=== PATIENT | female | born 1975 | race American Indian/Alaskan Native ===

== ENCOUNTER 2020-06-13 22:49 | Emergency (ER) | payer MEDICAID ==
[2020-06-13] MEDS ORDERED: Sodium Chloride 0.9% 1,000 ML IV SCH (23:15)
--- NOTE | 2020-06-13 23:15 | EDM.PDOC ---
ED HPI GENERAL MEDICAL PROBLEM - General Chief Complaint: Abdominal Pain Stated Complaint: LEFT ABDOMIN PAIN Time Seen by Provider: 06/13/20 23:07 Source of Information: Reports: Patient History Limitations: Reports: No Limitations - History of Present Illness INITIAL COMMENTS - FREE TEXT/NARRATIVE: This 45 yo female patient reports to the ED with left lower abdominal pain and abdominal bloating. The patient reports her symptoms started yesterday, but have been getting worse. The patient reports she had a loose bowel movement yesterday, but no bowel movement today. The patient reports she has been eating an drinking normally. The patient reports she had her last menstrual cycle last week and has not noticed any additional blood in her urine. The patient has had her appendix removed in the past. The patient reports she has take her gabapentin, but has not taken anything else for her current symptoms. The patient reports she attempted to get into the clinic, but could not call the clinic and could not find a ride to the clinic. The patient reports she has had her "tubes tied", but admits to recent unprotected sex. The patient admits to using marijuana and meth just prior to her symptom onset. Onset Date: 06/12/20 Duration: Constant, Getting Worse Location: Reports: Abdomen (LLQ with abdominal bloating) Quality: Reports: Ache Severity: Moderate Improves with: Reports: None Worsens with: Reports: None Context: Reports: Other Associated Symptoms: Reports: No Other Symptoms Treatments EDUCATIONAL PROGRAM ASSISTANT: Reports: Other Medication(s) Left Lower Abdomen Pain Score (Numeric/FACES): 6 - Related Data Allergies Allergy/AdvReac Type Severity Reaction Status Date / Time Sulfa (Sulfonamide Allergy Rash Verified 06/13/20 22:53 Antibiotics) Home Meds: Home Meds Gabapentin [Neurontin] 200 mg PO TID 06/13/20 [History] Social & Family History - Tobacco Use Tobacco Use Status *Q: Light Tobacco User Years of Tobacco use: 25 Packs/Tins Daily: 0.3 - Recreational Drug Use Recreational Drug Use: Yes Recreational Drug Type: Reports: Marijuana/Hashish, Methamphetamine Recreational Drug Use Frequency: Socially ED ROS GENERAL - Review of Systems Review Of Systems: Comprehensive ROS is negative, except as noted in HPI. ED EXAM, GI/ABD - Physical Exam Exam: See Below Exam Limited By: No Limitations General Appearance: Alert, WD/WN, Moderate Distress Eyes: Bilateral: Normal Appearance, EOMI Ears: Normal External Exam, Normal Canal, Hearing Grossly Normal, Normal TMs Nose: Normal Inspection, Normal Mucosa, No Blood Throat/Mouth: Normal Inspection, Normal Lips, Normal Teeth, Normal Gums, Normal Oropharynx, Normal Voice, No Airway Compromise Head: Atraumatic, Normocephalic Neck: Normal Inspection, Supple, Non-Tender, Full Range of Motion Respiratory/Chest: No Respiratory Distress, Lungs Clear, Normal Breath Sounds, No Accessory Muscle Use, Chest Non-Tender Cardiovascular: Normal Peripheral Pulses, Regular Rate, Rhythm, No Edema, No Gallop, No JVD, No Murmur, No Rub GI/Abdominal Exam: Normal Bowel Sounds, Distended (mild), Tender (diffuse with increased tenderness in the left lower quadrant) (Female) Exam: Deferred Rectal (Female) Exam: Deferred Back Exam: Normal Inspection, Full Range of Motion, NT Extremities: Normal Inspection, Normal Range of Motion, Non-Tender, Normal Capillary Refill, No Pedal Edema Neurological: Alert, Oriented, CN II-XII Intact, Normal Cognition, Normal Gait, Normal Reflexes, No Motor/Sensory Deficits Psychiatric: Normal Affect, Normal Mood Skin Exam: Warm, Dry, Intact, Normal Color, No Rash Lymphatic: No Adenopathy Course - Vital Signs Last Recorded V/S: Last Vital Signs Temp 36.1 C 06/13/20 22:54 Pulse 79 06/13/20 22:54 Resp 18 06/13/20 22:54 BP 135/76 06/13/20 22:54 Pulse Ox 100 06/13/20 22:54 - Orders/Labs/Meds Orders: Active Orders 24 hr Category Date Time Status CULTURE BLOOD [BC] Stat Lab 06/13/20 22:51 Ordered CULTURE URINE [RM] Stat Lab 06/13/20 23:07 Received Sodium Chloride 0.9% [Normal Saline] 1,000 ml Med 06/13/20 23:15 Ordered IV ASDIRECTED Medication Orders Sodium Chloride (Normal Saline) 1,000 mls @ 250 mls/hr IV ASDIRECTED TIFFANIE Last Admin: 06/13/20 23:16 Dose: 250 mls/hr Documented by: SYLLMEG Labs: Laboratory Tests 06/13/20 06/13/20 06/13/20 Range/Units 23:00 23:00 23:00 WBC 4.2 L (5.0-10.0) 10^3/uL RBC 4.18 L (4.2-5.4) 10^6/uL Hgb 10.8 L (12.0-16.0) g/dL Hct 33.7 L (37.0-47.0) % MCV 80.6 (80-100) fL MCH 25.8 L (27.0-34.0) pg MCHC 32.0 L (33.0-35.0) g/dL Plt Count 279 (150-450) 10^3/uL Neut % (Auto) 57.6 (42.2-75.2) % Lymph % (Auto) 33.9 (20.5-50.1) % Hunt % (Auto) 8.1 H (2-8) % Eos % (Auto) 0.2 L (1.0-3.0) % Baso % (Auto) 0.2 (0.0-1.0) % Sodium 142 (136-145) mmol/L Potassium 3.7 (3.5-5.1) mmol/L Chloride 103 (98-107) mmol/L Carbon Dioxide 30 (21-32) mmol/L Anion Gap 12.7 (7-13) mEq/L BUN 13 (7-18) mg/dL Creatinine 0.91 (0.55-1.02) mg/dL Est Cr Clr Drug Dosing 81.59 mL/min Estimated GFR (MDRD) > 60 BUN/Creatinine Ratio 14.3 (No establ ref range) Glucose 90 (74-99) mg/dL Lactic Acid 0.5 (0.4-2.0) mmol/L Calcium 8.8 (8.5-10.1) mg/dL Total Bilirubin 0.2 (0.2-1.0) mg/dL AST 18 (15-37) U/L ALT 20 (14-59) U/L Alkaline Phosphatase 109 (46-116) U/L Total Protein 8.5 H (6.4-8.2) g/dL Albumin 4.2 (3.4-5.0) g/dL Globulin 4.3 Albumin/Globulin Ratio 1.0 Amylase 51 (25-115) U/L Lipase 163 (73-393) U/L Urine Color (YELLOW) Urine Appearance (CLEAR) Urine pH (5.0-9.0) Ur Specific [place] (1.005-1.030) Urine Protein (NEGATIVE) Urine Glucose (UA) (NEGATIVE) Urine Ketones (NEGATIVE) Urine Occult Blood (NEGATIVE) Urine Nitrite (NEGATIVE) Urine Bilirubin (NEGATIVE) Urine Urobilinogen (0.2-1.0) mg/dL Ur Leukocyte Esterase (NEGATIVE) Urine RBC /HPF Urine WBC (0-5/HPF) /HPF Ur Epithelial Cells (NOT SEEN) /HPF Amorphous Sediment (NOT SEEN) /HPF Urine Bacteria (0-FEW/HPF) /HPF Urine HCG, Qual Urine Opiates Screen (NEGATIVE) Ur Oxycodone Screen (NEGATIVE) Urine Methadone Screen (NEGATIVE) Ur Barbiturates Screen (NEGATIVE) U Tricyclic Antidepress (NEGATIVE) Ur Phencyclidine Scrn (NEGATIVE) Ur Amphetamine Screen (NEGATIVE) U Methamphetamines Scrn (NEGATIVE) Urine MDMA Screen (NEGATIVE) U Benzodiazepines Scrn (NEGATIVE) Urine Cocaine Screen (NEGATIVE) U Marijuana (THC) Screen (NEGATIVE) 06/13/20 06/13/20 06/13/20 Range/Units 23:07 23:07 23:07 WBC (5.0-10.0) 10^3/uL RBC (4.2-5.4) 10^6/uL Hgb (12.0-16.0) g/dL Hct (37.0-47.0) % MCV (80-100) fL MCH (27.0-34.0) pg MCHC (33.0-35.0) g/dL Plt Count (150-450) 10^3/uL Neut % (Auto) (42.2-75.2) % Lymph % (Auto) (20.5-50.1) % Hunt % (Auto) (2-8) % Eos % (Auto) (1.0-3.0) % Baso % (Auto) (0.0-1.0) % Sodium (136-145) mmol/L Potassium (3.5-5.1) mmol/L Chloride (98-107) mmol/L Carbon Dioxide (21-32) mmol/L Anion Gap (7-13) mEq/L BUN (7-18) mg/dL Creatinine (0.55-1.02) mg/dL Est Cr Clr Drug Dosing mL/min Estimated GFR (MDRD) BUN/Creatinine Ratio (No establ ref range) Glucose (74-99) mg/dL Lactic Acid (0.4-2.0) mmol/L Calcium (8.5-10.1) mg/dL Total Bilirubin (0.2-1.0) mg/dL AST (15-37) U/L ALT (14-59) U/L Alkaline Phosphatase (46-116) U/L Total Protein (6.4-8.2) g/dL Albumin (3.4-5.0) g/dL Globulin Albumin/Globulin Ratio Amylase (25-115) U/L Lipase (73-393) U/L Urine Color Yellow (YELLOW) Urine Appearance Slightly cloudy (CLEAR) Urine pH 7.5 (5.0-9.0) Ur Specific [place] 1.025 (1.005-1.030) Urine Protein Negative (NEGATIVE) Urine Glucose (UA) Negative (NEGATIVE) Urine Ketones Negative (NEGATIVE) Urine Occult Blood Negative (NEGATIVE) Urine Nitrite Negative (NEGATIVE) Urine Bilirubin Negative (NEGATIVE) Urine Urobilinogen 1.0 (0.2-1.0) mg/dL Ur Leukocyte Esterase Small H (NEGATIVE) Urine RBC 0-5 /HPF Urine WBC 50-75 H (0-5/HPF) /HPF Ur Epithelial Cells Moderate H (NOT SEEN) /HPF Amorphous Sediment Moderate H (NOT SEEN) /HPF Urine Bacteria Many H (0-FEW/HPF) /HPF Urine HCG, Qual Negative Urine Opiates Screen Negative (NEGATIVE) Ur Oxycodone Screen Negative (NEGATIVE) Urine Methadone Screen Negative (NEGATIVE) Ur Barbiturates Screen Negative (NEGATIVE) U Tricyclic Antidepress Negative (NEGATIVE) Ur Phencyclidine Scrn Negative (NEGATIVE) Ur Amphetamine Screen Positive H (NEGATIVE) U Methamphetamines Scrn Positive H (NEGATIVE) Urine MDMA Screen Negative (NEGATIVE) U Benzodiazepines Scrn Negative (NEGATIVE) Urine Cocaine Screen Negative (NEGATIVE) U Marijuana (THC) Screen Positive H (NEGATIVE) Meds: Medications Generic Name Dose Route Start Last Admin Trade Name Freq PRN Reason Stop Dose Admin Sodium Chloride 1,000 mls @ 250 mls/hr 06/13/20 23:15 06/13/20 23:16 Normal Saline IV 250 mls/hr ASDIRECTED TIFFANIE Administration Discontinued Medications Generic Name Dose Route Start Last Admin Trade Name Freq PRN Reason Stop Dose Admin Amoxicillin/Clavulanate Potassium 1 tab 06/14/20 00:34 Amoxicillin/Clavulanate K 500-125 Mg Tab PO 06/14/20 00:35 ONETIME ONE Iopamidol 100 ml 06/13/20 23:37 06/13/20 23:45 Iopamidol 612 Mg/Ml 100 Ml Bottle IVPUSH 06/13/20 23:38 100 ml ONETIME ONE Administration Departure - Departure Time of Disposition: 00:36 Disposition: Home, Self-Care 01 Condition: Good Clinical Impression: Methamphetamine use Constipation Qualifiers: Constipation type: unspecified constipation type Qualified Code(s): K59.00 - Constipation, unspecified UTI (urinary tract infection) Qualifiers: Urinary tract infection type: site unspecified Hematuria presence: without hematuria Qualified Code(s): N39.0 - Urinary tract infection, site not specified - Discharge Information *PRESCRIPTION DRUG MONITORING PROGRAM REVIEWED*: Not Applicable *COPY OF PRESCRIPTION DRUG MONITORING REPORT IN PATIENT VLAE: Not Applicable Instructions: Urinary Tract Infection, Adult, [id number], Constipation, Adult, [id number] Forms: ED Department Discharge Care Plan Goals: The patient was advised of the examination, lab and CT results during the visit. The patient was given an oral dose of Augment while in the ED. The patient was discharged with a script for Augmentin (500/125) #6 to take 1 by mouth 2 times per day for 3 days. If the patient has any additional symptoms or concerns, the patient should either return to the emergency department or visit her primary care facility. Sepsis Event Note (ED) - Evaluation Sepsis Screening Result: No Definite Risk - Focused Exam Vital Signs: Vital Signs Temp Pulse Resp BP Pulse Ox 06/13/20 22:54 36.1 C 79 18 135/76 100 - My Orders Last 24 Hours: My Active Orders 06/13/20 22:51 CULTURE BLOOD [BC] Stat 06/13/20 23:07 CULTURE URINE [RM] Stat 06/13/20 23:15 Sodium Chloride 0.9% [Normal Saline] 1,000 ml IV ASDIRECTED - Assessment/Plan Last 24 Hours: My Active Orders 06/13/20 22:51 CULTURE BLOOD [BC] Stat 06/13/20 23:07 CULTURE URINE [RM] Stat 06/13/20 23:15 Sodium Chloride 0.9% [Normal Saline] 1,000 ml IV ASDIRECTED
[2020-06-13 23:28] LABS: ANION GAP 12.7 mEq/L (7-13); CHLORIDE,CL 103 mmol/L (98-107); SODIUM,NA 142 mmol/L (136-145)
[2020-06-13] MEDS ORDERED: Iopamidol 612 MG/ML 100 ML Bottle IVPUSH ONE (23:37)
--- NOTE | 2020-06-14 00:31 | CT ---
PROCEDURE INFORMATION: Exam: CT Abdomen And Pelvis With Contrast Exam date and time: 06/14/2020 12:01 AM Age: 45 years old Clinical indication: Other: Pain; Additional info: Left lower abdominal pain with bloating TECHNIQUE: Imaging protocol: Computed tomography of the abdomen and pelvis with contrast. Radiation optimization: All CT scans at this facility use at least one of these dose optimization techniques: automated exposure control; mA and/or kV adjustment per patient size (includes targeted exams where dose is matched to clinical indication); or iterative reconstruction. Contrast material: [id number]; Contrast volume: 100 ml; Contrast route: INTRAVENOUS (IV); COMPARISON: CT ABDOMEN/PELVIS 10/30/2012 6:42 AM FINDINGS: Lungs: The lung bases are clear. There are no pleural effusions. Liver: The liver is homogeneous in appearance without focal hepatic lesions. Gallbladder and bile ducts: The gallbladder is not distended. There is no biliary ductal dilatation. Pancreas: The pancreas is within normal limits. Spleen: The spleen is normal in size. Adrenal glands: The adrenal glands are normal in appearance. Kidneys and ureters: The kidneys are symmetric in size. There is no hydronephrosis. No renal or ureteral calculi are identified. Stomach and bowel: The stomach is moderately distended with ingested material. No pathologically dilated small bowel loops are seen. There is a large volume of stool in the colon. There is no evidence of colonic wall thickening or pericolonic inflammation. Appendix: The appendix is surgically absent. Intraperitoneal space: There is no free air or free fluid in the abdomen or pelvis. Vasculature: The abdominal aorta is normal in caliber. The celiac axis, SMA and PABLO are patent. Lymph nodes: No pathologically enlarged lymph nodes are identified in the abdomen or pelvis. Urinary bladder: The urinary bladder appears normal. Reproductive: The uterus is normal in appearance. No adnexal masses are identified. Bones/joints: There is moderate degenerative disc disease in the lumbar spine. No acute fractures or aggressive bone lesions are identified. Soft tissues: There is minor focal fat along the falciform ligament. IMPRESSION: Large volume of stool in the colon suggesting constipation. No evidence of bowel obstruction or acute inflammatory process in the abdomen or pelvis.
[2020-06-14] MEDS ORDERED: Amoxicillin/Clavulanate K 500-125 MG Tab PO ONE (00:34)
== END 2020-06-14 00:48 | disposition home or self-care (01) ==
LOC: DL.ED 22:49
DX: N39.0 Urinary tract infection, site not specified (principal); K59.00 Constipation, unspecified; F15.90 Other stimulant use, unspecified, uncomplicated; Z88.2 Allergy status to sulfonamides; Z79.899 Other long term (current) drug therapy; Z87.891 Personal history of nicotine dependence
CPT/HCPCS: 36415; 74177; 80053; 80305; 81001; 81025; 82150; 83605; 83690; 85025; 87040; 87086; 99283; 99284; A9270; J7030; Q9967

== ENCOUNTER 2022-04-11 13:25 | Emergency (ER) | payer MEDICAID ==
[2022-04-11] MEDS ORDERED: Sodium Chloride 0.9% 10 ML Syringe FLUSH PRN (13:52)
[2022-04-11 14:39] LABS: ANION GAP 12.7 mEq/L (7-13); CHLORIDE,CL 102 mmol/L (98-107); SODIUM,NA 138 mmol/L (136-145)
[2022-04-11 14:40] LABS: ESTIMATED GFR 99 mL/min (>=60)
== END 2022-04-11 15:20 | disposition home or self-care (01) ==
LOC: DL.ED 13:25
DX: R55 Syncope and collapse (principal); Z88.5 Allergy status to narcotic agent; Z88.2 Allergy status to sulfonamides; Z88.8 Allergy status to other drugs, medicaments and biological substances
CPT/HCPCS: 36415; 80053; 83605; 83735; 84145; 85025; 86140; 87040; 93005; 93010; 99283; 99284

== ENCOUNTER 2022-07-16 15:11 | Emergency (ER) | payer MEDICAID ==
[2022-07-16] MEDS ORDERED: Sodium Chloride 0.9% 10 ML Syringe FLUSH PRN (15:18)
[2022-07-16 16:14] LABS: CHLORIDE,CL 106 mmol/L (98-107); SODIUM,NA 142 mmol/L (136-145)
[2022-07-16 16:15] LABS: ESTIMATED GFR 89 mL/min (>=60)
[2022-07-16] MEDS ORDERED: Iopamidol 612 MG/ML 100 ML Bottle IVPUSH ONE (16:19)
[2022-07-16] MEDS ORDERED: Enoxaparin 100 MG/1 ML Syringe SUBCUT ONE (17:36)
== END 2022-07-16 18:00 ==
LOC: DL.ED 15:11
DX: I82.B11 Acute embolism and thrombosis of right subclavian vein (principal); R59.0 Localized enlarged lymph nodes; S21.001A Unspecified open wound of right breast, initial encounter; Z88.5 Allergy status to narcotic agent; Z88.2 Allergy status to sulfonamides; Z88.8 Allergy status to other drugs, medicaments and biological substances; Z86.16 Personal history of COVID-19
CPT/HCPCS: 36415; 71260; 80053; 83605; 83735; 84703; 85025; 85610; 86140; 96372; 99284; J1650; Q9967

== ENCOUNTER 2022-09-05 22:17 | Emergency (ER) | payer MEDICAID | END 2022-09-06 02:17 | LOC: DL.ED 22:17 | DX: I82.A11 Acute embolism and thrombosis of right axillary vein (principal); C50.911 Malignant neoplasm of unspecified site of right female breast; R60.0 Localized edema; F17.210 Nicotine dependence, cigarettes, uncomplicated; Z86.16 Personal history of COVID-19; Z88.5 Allergy status to narcotic agent; Z88.8 Allergy status to other drugs, medicaments and biological substances; Z88.2 Allergy status to sulfonamides | CPT/HCPCS: 99285 ==

== ENCOUNTER 2023-02-19 11:06 | Emergency (ER) | payer MEDICAID | END 2023-02-19 16:29 | disposition left against medical advice (07) | LOC: DL.ED 11:06 | DX: Z53.21 Procedure and treatment not carried out due to patient leaving prior to being seen by health care provider (principal) ==

== ENCOUNTER 2023-03-10 21:15 | Inpatient (IN) | payer MEDICAID ==
[2023-03-10] MEDS ORDERED: Naloxone 2 MG/2 ML Syringe IVPUSH PRN ×2 (21:57→22:37)
[2023-03-10] MEDS ORDERED: Morphine 2 MG/ML SYRINGE IVPUSH ONE (21:57)
[2023-03-10] MEDS ORDERED: Ondansetron 4 MG/2 ML SDV IVPUSH PRN (22:24)
[2023-03-10] MEDS ORDERED: HYDROmorphone 1 MG/ML Syringe IVPUSH ONE (22:34)
[2023-03-10] MEDS: LORazepam 2 MG/ML SDV IV PRN (22:41)
[2023-03-10] MEDS ORDERED: fentaNYL Citrate/PF 1,500 MCG/30 ML PCA Vial IV SCH (22:45)
[2023-03-10] MEDS ORDERED: Triamcinolone Acetonide 0.1% Crm 15 GM Tube TOP ONE (22:52)
[2023-03-11] MEDS ORDERED: Sodium Chloride 0.9% 10 ML Syringe FLUSH PRN (00:14)
[2023-03-11] MEDS ORDERED: Polyethylene Glycol 3350 Powder 17 GM Packet PO PRN (00:14)
[2023-03-11] MEDS ORDERED: Magnesium Hydroxide 400 MG/5 ML Susp 30 ML Cup PO PRN (00:14)
[2023-03-11] MEDS ORDERED: Sennosides/Docusate Sodium 50-8.6 MG Tab PO PRN (00:14)
[2023-03-11] MEDS: Nicotine 21 MG/24 Hr Patch TRDERM SCH ×2 (02:40→08:26)
[2023-03-11] MEDS ORDERED: Pantoprazole 40 MG Vial IVPUSH ONE (02:58)
[2023-03-11] MEDS: LORazepam 2 MG/ML SDV IV PRN ×4 (03:30→19:00)
[2023-03-11] MEDS: diphenhydrAMINE 50 MG/ML SDV IVPUSH PRN ×2 (04:00→19:43)
[2023-03-11 06:28] LABS: BASOPHILS PERCENT AUTO 0.3 % (0.0-1.0); EOSINOPHILS PERCENT AUTO 0.5 % (1.0-3.0); HEMATOCRIT 25.6 % (37.0-47.0); LYMPHOCYTES PERCENT AUTO 8.5 % (20.5-50.1); MEAN CORPUSCULAR HEMOGLOBIN 31.5 pg (27.0-34.0); MEAN CORPUSCULAR HGB CONC 31.3 g/dL (33.0-35.0); MEAN CORPUSCULAR VOLUME 100.8 fL (80-100); NEUTROPHILS PERCENT AUTO 76.7 % (42.2-75.2); PLATELET COUNT,PLT 137 10^3/uL (150-450); RED BLOOD CELL COUNT 2.54 10^6/uL (4.2-5.4); WHITE BLOOD CELL COUNT,WBC 3.7 10^3/uL (5.0-10.0)
[2023-03-11 06:54] LABS: ALBUMIN 1.7 g/dL (3.4-5.0); ANION GAP 7.9 mEq/L (7-13); BILIRUBIN TOTAL 0.5 mg/dL (0.2-1.0); BUN/CREATININE RATIO 14.8 (No establ ref range); CALCIUM 7.6 mg/dL (8.5-10.1); CREATININE 0.61 mg/dL (0.55-1.02); EST CRCL DRUG DOSING (CG) 119.15 mL/min; MAGNESIUM 1.9 mg/dL (1.8-2.4); POTASSIUM,K 3.9 mmol/L (3.5-5.1); PROTEIN TOTAL,TP 4.9 g/dL (6.4-8.2)
[2023-03-11 07:00] LABS: A/G RATIO 0.53
[2023-03-11] MEDS ORDERED: Sodium Chloride 0.9% 10 ML Syringe FLUSH SCH (09:00)
[2023-03-11] MEDS ORDERED: Furosemide 40 MG Tab PO SCH (09:00)
[2023-03-11] MEDS: Albuterol/Ipratropium 3.0-0.5 MG/3 ML Neb Soln NEB PRN ×2 (10:19→20:47)
[2023-03-11] MEDS: Midodrine 5 MG Tab PO SCH ×2 (12:45→17:41)
[2023-03-11] MEDS ORDERED: METHADONE 5 MG PO SCH (18:00)
== END 2023-03-11 21:47 | DRG 951 ==
LOC: DL.ED 21:15 → DL.MS 23:00
PROVIDERS: ADMIT Internal Medicine; ATTEND Internal Medicine
PROC: 0T9B70Z Drainage of Bladder with Drainage Device, Via Natural or Artificial Opening (ICD-10-PCS; principal; 2023-03-10)
DX: Z51.5 Encounter for palliative care (principal); J96.21 Acute and chronic respiratory failure with hypoxia; D61.810 Antineoplastic chemotherapy induced pancytopenia; C78.02 Secondary malignant neoplasm of left lung; J90 Pleural effusion, not elsewhere classified; Z66 Do not resuscitate; D50.9 Iron deficiency anemia, unspecified; I95.9 Hypotension, unspecified; I89.0 Lymphedema, not elsewhere classified; G89.3 Neoplasm related pain (acute) (chronic); G25.81 Restless legs syndrome; G89.29 Other chronic pain; M54.9 Dorsalgia, unspecified; F17.210 Nicotine dependence, cigarettes, uncomplicated; Z90.10 Acquired absence of unspecified breast and nipple; C50.911 Malignant neoplasm of unspecified site of right female breast; T21.11XA Burn of first degree of chest wall, initial encounter; T22.151A Burn of first degree of right shoulder, initial encounter; T20.17XA Burn of first degree of neck, initial encounter; Z98.51 Tubal ligation status; Z88.5 Allergy status to narcotic agent; Z98.890 Other specified postprocedural states; Z99.81 Dependence on supplemental oxygen; Z86.73 Personal history of transient ischemic attack (TIA), and cerebral infarction without residual deficits; Z99.89 Dependence on other enabling machines and devices; Z88.2 Allergy status to sulfonamides; Z88.8 Allergy status to other drugs, medicaments and biological substances; Z86.16 Personal history of COVID-19; Z90.49 Acquired absence of other specified parts of digestive tract
CPT/HCPCS: 36415; 71045; 80053; 83735; 85025; 96374; 96375; 99223; 99238; 99285; 99285-25; A9270-GY; C9113; J1170; J1200; J2060; J2270; J2405; J3010; J7620-GY